=== PATIENT | male | born 1970 | race Caucasian/White ===

== ENCOUNTER → 2022-01-13 09:16 | Outpatient (BNVA) | payer OTHER, SELFPAY | PROVIDERS: Referring Provider Family Medicine; Visit Provider Surgery | DX: Z12.11 Encounter for screening for malignant neoplasm of colon (principal) | CPT/HCPCS: 99203 ==

== ENCOUNTER 2022-12-14 20:00 | Outpatient (CLI) | payer OTHER, SELFPAY | END 2022-12-14 20:01 | disposition home or self-care (01) | LOC: SLEEP 12-15 05:11 | PROVIDERS: Visit Provider Family Medicine | DX: G47.30 Sleep apnea, unspecified (principal) | CPT/HCPCS: 95810 ==

== ENCOUNTER 2023-03-02 14:03 | Outpatient (CLI) | payer OTHER, SELFPAY ==
--- NOTE | 2023-03-02 14:12 | MR_ITS ---
WS: [id number] MRI LUMBAR SPINE NONCONTRAST TECHNIQUE: Sagittal T1, T2 and STIR imaging. Axial T1 and T2 imaging. CLINICAL INFORMATION: SPONDYLOSIS COMPARISON: None. FINDINGS: Mild lumbar curve. Disc bulging worse L5-S1. No acute compression fractures. L1-L2: Mild annular bulging. Mild facet arthropathy. Spinal canal and foramen are patent. L2-L3: No significant disc bulging. Mild facet arthropathy. Spinal canal and foramen are patent. L3-L4: Mild annular bulging. Slight narrowing of the LEFT greater than RIGHT subarticular recess. Mil d facet arthropathy. Mild LEFT and no significant RIGHT foraminal narrowing. L4-L5: Mild annular bulging. Slight impingement subarticular recess bilaterally. Small LEFT foraminal protrusion slightly impinges the exiting LEFT L4 nerve root. Tiny RIGHT foraminal protrusion slightl y contacts the exiting RIGHT L4 nerve root. Moderate facet arthropathy. L5-S1: Small LEFT pericentral protrusion slightly impinges the LEFT S1 nerve root. Mild LEFT foramina l narrowing. Mild facet arthropathy. Visualized pelvic bony structures: Normal. Paravertebral soft tissues: Normal. MR/MR lumbar spine wo con* [id number] IMPRESSION: 1. LEFT pericentral disc protrusion L5-S1 measures 8 mm with impingement on th e LEFT S1 nerve root. Recommend correlation LEFT S1 nerve root symptoms. 2. Mild annular bulging L3-L4 and L4-L5 with narrowing of the subarticular rec ess worse at LEFT L4-L5. 3. Small LEFT foraminal protrusion with small annular fissure slightly impinge s the exiting LEFT L4 nerve root. Tiny RIGHT L4-L5 foraminal protrusion. 4. Mild to moderate facet arthropathy L3-L5.
== END 2023-03-02 14:04 | disposition home or self-care (01) ==
PROVIDERS: PCP Family Medicine; Visit Provider Internal Medicine
DX: M47.25 Other spondylosis with radiculopathy, thoracolumbar region (principal); M51.36 Other intervertebral disc degeneration, lumbar region; M48.07 Spinal stenosis, lumbosacral region; M54.50 Low back pain, unspecified; R20.0 Anesthesia of skin
CPT/HCPCS: 72148

== ENCOUNTER 2023-11-28 14:23 | Emergency (ER) | payer OTHER, SELFPAY ==
[2023-11-28 14:48] VITALS: BP 170/81; PULSE 87; RESP 16; TEMP 36.8; O2SAT 96; BMI 32.5
[2023-11-28 14:58] LABS: Basophils # 0.1 10^3/uL (0.0-0.1); Basophils % 0.5 %; Eosinophils # 0.1 10^3/uL (0.0-0.8); Eosinophils % 1.1 %; Hematocrit 43.9 % (37-53); Lymphocytes # 3.8 10^3/uL (0.8-4.8); Lymphocytes % 34.4 %; Mean Corpuscular HGB Conc 35.1 g/dL (30-55); Mean Corpuscular Hemoglobin 31.3 pg (27-33); Mean Corpuscular Volume 89.2 fl (82-101); Mean Platelet Volume 9.6 fL (7.4-10.4); Monocytes # 0.9 10^3/uL (0.2-0.9); Monocytes % 8.2 %; Neutrophils # 6.15 10^3/uL (1.8-7.7); Neutrophils % 55.4 %; Nucleated Red Blood Cells % 0 %; Platelet Count 187 10^3/cmm (157-399); Red Blood Count 4.92 10^6/uL (3.85-5.65); Red Cell Distribution Width 13.2 % (12.1-15.1); White Blood Count 11.09 10^3/uL (3.29-11.43)
[2023-11-28 15:05] LABS: Alanine Aminotransferase 15 U/L (0-41); Albumin Level 4.2 g/dL (3.5-5.2); Alkaline Phosphatase 56 U/L (40-130); Anion Gap 12.9 (5-19); Aspartate Amino Transferase 24 U/L (0-40); Blood Urea Nitrogen 9 mg/dL (6-20); Calcium 8.7 mg/dL (8.5-10.5); Carbon Dioxide 27 mmol/L (22-29); Chloride 101 mmol/L (98-107); Creatinine Clr Calc Pharmacy 98.3458; Globulin 2.4 g/dL (1.3-4.6); Glomerular Filtration Rate 77.9 mL/min (90-130); Glucose 77 mg/dL (65-115); Lipase 32 U/L (13-60); Osmolality Calculated 281 mOsm/kg (285-295); Potassium 3.9 mmol/L (3.5-5.1); Sodium 137 mmol/L (136-145); Total Bilirubin 0.4 mg/dL (0.15-1.2); Total Protein 6.6 g/dL (6.6-8.7)
--- NOTE | 2023-11-28 16:04 | ED_ITS ---
Documented by User: CONY Torres 11/28/23 16:35 HPI - Male Genitourinary 2 General: Chief complaint: Urogenital-Male Stated complaint: kidney trouble Time Seen by Provider: 11/28/23 15:42 Source: patient Mode of arrival: ambulatory Limitations: no limitations History of Present Illness: Patient is a 53-year-old male who presents to ED today with a complaint of left- sided back pain. Patient states the pain seemed to begin fairly suddenly. He initially thought it was secondary to lifting another individual the day before. He states he does have a history of kidney stones and also states the pain kind of felt similar to that. He feels like at times the back spasms. He occasionally will have some slight radiation of his discomfort into the left side of his abdomen. He does not complain of dysuria, frequency, urgency. He did have one episode of dark urine which he felt like was abnormal as he usually drinks plenty of water. He is not running fevers. He is reporting normal bowel movements. Onset (ago): day(s) Duration: constant Location: left flank Radiation: abdomen Severity: moderate Exacerbating factors: movement Associated symptoms: Reports hematuria (had an episode of dark urine-no obvious blood); Deny dysuria, nausea or vomiting Review of Systems 2 Const: Denies: fever(s), chills, body aches, fatigue or malaise Card: Denies: chest pain Resp: Denies: dyspnea GI: Reports: abdominal pain; Denies: nausea, vomiting or diarrhea : Reports: flank pain and hematuria (had an episode of dark urine-no obvious blood); Denies: difficulty urinating, dysuria, urinary frequency, urinary urgency, urinary hesitancy or urinary dribbling Musc: Reports: back pain; Denies: neck pain, extremity pain, extremity swelling, joint pain or joint swelling Neuro: Denies: numbness in extremities, weakness in extremities, sensory changes or dizziness PFSH ED 2 PFSH: Medical History PTSD (post-traumatic stress disorder) Sleep apnea in adult Bronchitis possible [place] lung injury Social History Smoking and tobacco/nicotine status: never used tobacco/nicotine Physical Exam 2 Const: COMMON NORMALS: no acute distress, patient oriented x3, no limitations, healthy appearing, alert and well nourished Resp: COMMON NORMALS: normal respiratory effort and clear to auscultation bilaterally AUSCULTATION: clear to auscultation bilaterally Cardio: COMMON NORMALS: regular rate and regular rhythm RATE: regular rate RHYTHM: regular rhythm GI: COMMON NORMALS: Normal to inspection, nondistended, normoactive bowel sounds present, Soft to palpation, No hepatosplenomegaly present and no masses INSPECTION: Yes normal to inspection AUSCULTATION: Yes normoactive bowel sounds PALPATION: Yes Soft to palpation, Yes Tenderness to palpation present (GI) (very minor tenderness L abdomen), No Guarding due to palpation present (GI), No Rigid due to palpation and Yes No hepatosplenomegaly present : COMMON NORMALS: Yes no CVA tenderness (tenderness just below L CVA) B LADDER/KIDNEY EXAM: Yes no CVA tenderness (tenderness just below L CVA) Back/Pelvis: COMMON NORMALS: no CVA tenderness (tenderness just below L CVA), thoracic and lumbar spine normal to inspection and no thoracic nor lumbar tenderness THORACIC SPINE/UPPER BACK: No thoracic spinal tenderness, No paraspinal muscle tenderness and No paraspinal muscle spasm LUMBAR SPINE/LOWER BACK: No lumbar spinal tenderness, Yes paraspinal muscle tenderness and No paraspinal muscle spasm BACK IMAGE (MALE): 1. TTP Extremity: GENERAL: Yes normal exam except as noted Neuro: COMMON NORMALS: patient oriented x3, moves all extremities, no focal motor deficits, no sensory deficits noted and gait normal S ENSORIUM/ORIENTATION: Yes alert Skin: COMMON NORMALS: no rashes or lesions noted GENERAL SKIN EXAM: no rashes or lesions noted Course 2 Vital Signs: Vital signs: Vital Signs Temperature 98.3 F 11/28/23 14:48 Pulse Rate 87 11/28/23 14:48 Respiratory Rate 16 11/28/23 14:48 Blood Pressure 170/81 11/28/23 14:48 Pulse Oximetry 96 11/28/23 14:48 Oxygen Delivery Me thod Room Air 11/28/23 14:48 MDM - Male Lab Data 11/28/23 14:44 11/28/23 14:44 Radiology Impressions Abdomen/Pelvis CT 11/28/23 16:31 IMPRESSION: 1. No acute abnormality in the abdomen or pelvis. 2. No hydroureteronephrosis. No calcified urolithiasis. 3. Small fat-containing umbilical hernia. No evidence for strangulation. 4. Scattered diverticula in the colon. No evidence for diverticulitis. 5. Incidental/nonacute findings are listed in the report. Laboratory Results WBC 11.09 10^3/uL (3.29-11.43) 11/28/23 14:44 RBC 4.92 10^6/uL (3.85-5.65) 11/28/23 14:44 Hgb 15.40 g/dL (11.27-16.99) 11/28/23 14:44 Hct 43.9 % (37-53) 11/28/23 14:44 MCV 89.2 fl (82-101) 11/28/23 14:44 MCH 31.3 pg (27-33) 11/28/23 14:44 MCHC 35.1 g/dL (30-55) 11/28/23 14:44 RDW 13.2 % (12.1-15.1) 11/28/23 14:44 Plt Count 187 10^3/cmm (157-399) 11/28/23 14:44 MPV 9.6 fL (7.4-10.4) 11/28/23 14:44 Neut % (Auto) 55.4 % 11/28/23 14:44 Lymph % (Auto) 34.4 % 11/28/23 14:44 [place] % (Auto) 8.2 % 11/28/23 14:44 Eos % (Auto) 1.1 % 11/28/23 14:44 Baso % (Auto) 0.5 % 11/28/23 14:44 Neut # (Auto) 6.15 10^3/uL (1.8-7.7) 11/28/23 14:44 Lymph # (Auto) 3.8 10^3/uL (0.8-4.8) 11/28/23 14:44 [place] # (Auto) 0.9 10^3/uL (0.2-0.9) 11/28/23 14:44 Eos # (Auto) 0.1 10^3/uL (0.0-0.8) 11/28/23 14:44 Baso # (Auto) 0.1 10^3/uL (0.0-0.1) 11/28/23 14:44 Nucleated RBC % (auto) 0 % 11/28/23 14:44 Nucleated RBCs # 0.0 /100WBC 11/28/23 14:44 Sodium 137 mmol/L (136-145) 11/28/23 14:44 Potassium 3.9 mmol/L (3.5-5.1) 11/28/23 14:44 Chloride 101 mmol/L (98-107) 11/28/23 14:44 Carbon Dioxide 27 mmol/L (22-29) 11/28/23 14:44 Anion Gap 12.9 (5-19) 11/28/23 14:44 BUN 9 mg/dL (6-20) 11/28/23 14:44 Creatinine 1.0 mg/dL (0.7-1.2) 11/28/23 14:44 GFR Calculation 77.9 mL/min (90-130) L 11/28/23 14:44 Glucose 77 mg/dL (65-115) 11/28/23 14:44 Calculated Osmolality 281 mOsm/kg (285-295) L 11/28/23 14:44 Calcium 8.7 mg/dL (8.5-10.5) 11/28/23 14:44 Total Bilirubin 0.4 mg/dL (0.15-1.2) 11/28/23 14:44 AST 24 U/L (0-40) 11/28/23 14:44 ALT 15 U/L (0-41) 11/28/23 14:44 Alkaline Phosphatase 56 U/L (40-130) 11/28/23 14:44 Total Protein 6.6 g/dL (6.6-8.7) 11/28/23 14:44 Albumin 4.2 g/dL (3.5-5.2) 11/28/23 14:44 Globulin 2.4 g/dL (1.3-4.6) 11/28/23 14:44 Lipase 32 U/L (13-60) 11/28/23 14:44 Urine Color Straw (Yellow) 11/28/23 16:09 Urine Appearance Clear (CLEAR) 11/28/23 16:09 Urine pH 6 (5-7) 11/28/23 16:09 Ur Specific [place] 1.015 (1.005-1.030) 11/28/23 16:09 Urine Protein Neg (Negative) 11/28/23 16:09 Urine Glucose (UA) Norm (Normal) 11/28/23 16:09 Urine Ketones Negative (Negative) 11/28/23 16:09 Urine Blood Neg (Negative) 11/28/23 16:09 Urine Nitrate Negative (Negative) 11/28/23 16:09 Urine Bilirubin Neg (Negative) 11/28/23 16:09 Urine Urobilinogen Norm mg/dL (Negative) 11/28/23 16:09 Ur Leukocyte Esterase Negative (Negative) 11/28/23 16:09 Discharge Plan Discharge Condition: Stable Prescriptions: No Action albuterol sulfate 90 mcg/actuation HFA aerosol inhaler 2 puff inhalation Q6H PRN (Reason: shortness of breath or wheezing) Qty: 8.5 0RF ketoconazole 2 % shampoo 1 applic topical ONCE Qty: 120 2RF Rx Instructions: Use as body wash and allow to sit 5 minutes before rinsing. Repeat daily for 21 days, then as needed for flares. Referrals: Christy Blackman MD [Primary Care Provider] - Coding Level of Care Code ED Vehicle Service Attendant for [employer] Documented by User: IVAN Neil 11/28/23 17:41 HPI - Male Genitourinary 2 General: Chief complaint: Urogenital-Male Stated complaint: kidney trouble Time Seen by Provider: 11/28/23 15:42 PFSH ED 2 PFSH: Medical History PTSD (post-traumatic stress disorder) Sleep apnea in adult Bronchitis possible [place] lung injury Social History Smoking and tobacco/nicotine status: never used tobacco/nicotine Physical Exam 2 Back/Pelvis: BACK IMAGE (MALE): 1. TTP Course 2 ED course: 1700 -assumed care of patient due to jinny nge in shift Reevaluation(s): Reevaluation #1: Discussed CT findings and labs with patient and family. Advised of incidental findings noted in the CT scan. Advised that this is likely muscular in nature. Discussed medications that he would be able to use to help with his symptoms. Patient declines muscle relaxers at this time as he states that he does have some old cyclobenzaprine at home. Encourage patient to follow-up with his primary care. Time: 17:30 Vital Signs: Vital signs: Vital Signs Temperature 98.3 F 11/28/23 14:48 Pulse Rate 87 11/28/23 14:48 Respiratory Rate 16 11/28/23 14:48 Blood Pressure 170/81 11/28/23 14:48 Pulse Oximetry 96 11/28/23 14:48 Oxygen Delivery Me thod Room Air 11/28/23 14:48 MDM - Male Medical Decision Making 53yo male here with family for left-sided back pain that started after lifting someone, but he thought it may be a kidney stone as he has had them in the past. Patient was received in handoff due to change of shift with a CT pending. Noncontrasted CTAP with no acute abnormality in the abdomen/pelvis, specifically no hydroureteronephrosis and no calcified urolithiasis. Incidental findings of small fat-containing umbilical hernia as well as scattered diverticula with no indication of diverticulitis and mild atherosclerosis noted. Discussed with patient this is likely muscular in nature. Offered medication, but patient does state that he has some at home. Encourage patient to slowly increase his activity level and follow-up with his primary care. Recommend he return to the emergency department if any rapid worsening symptoms, further injury, and as needed. Patient states understanding has no further questions or concerns at this time. Medical Records I reviewed the patient's medical records. Lab Data I reviewed the patient's lab results. 11/28/23 14:44 11/28/23 14:44 Radiology Impressions Abdomen/Pelvis CT 11/28/23 16:31 IMPRESSION: 1. No acute abnormality in the abdomen or pelvis. 2. No hydroureteronephrosis. No calcified urolithiasis. 3. Small fat-containing umbilical hernia. No evidence for strangulation. 4. Scattered diverticula in the colon. No evidence for diverticulitis. 5. Incidental/nonacute findings are listed in the report. Laboratory Results WBC 11.09 10^3/uL (3.29-11.43) 11/28/23 14:44 RBC 4.92 10^6/uL (3.85-5.65) 11/28/23 14:44 Hgb 15.40 g/dL (11.27-16.99) 11/28/23 14:44 Hct 43.9 % (37-53) 11/28/23 14:44 MCV 89.2 fl (82-101) 11/28/23 14:44 MCH 31.3 pg (27-33) 11/28/23 14:44 MCHC 35.1 g/dL (30-55) 11/28/23 14:44 RDW 13.2 % (12.1-15.1) 11/28/23 14:44 Plt Count 187 10^3/cmm (157-399) 11/28/23 14:44 MPV 9.6 fL (7.4-10.4) 11/28/23 14:44 Neut % (Auto) 55.4 % 11/28/23 14:44 Lymph % (Auto) 34.4 % 11/28/23 14:44 [place] % (Auto) 8.2 % 11/28/23 14:44 Eos % (Auto) 1.1 % 11/28/23 14:44 Baso % (Auto) 0.5 % 11/28/23 14:44 Neut # (Auto) 6.15 10^3/uL (1.8-7.7) 11/28/23 14:44 Lymph # (Auto) 3.8 10^3/uL (0.8-4.8) 11/28/23 14:44 [place] # (Auto) 0.9 10^3/uL (0.2-0.9) 11/28/23 14:44 Eos # (Auto) 0.1 10^3/uL (0.0-0.8) 11/28/23 14:44 Baso # (Auto) 0.1 10^3/uL (0.0-0.1) 11/28/23 14:44 Nucleated RBC % (auto) 0 % 11/28/23 14:44 Nucleated RBCs # 0.0 /100WBC 11/28/23 14:44 Sodium 137 mmol/L (136-145) 11/28/23 14:44 Potassium 3.9 mmol/L (3.5-5.1) 11/28/23 14:44 Chloride 101 mmol/L (98-107) 11/28/23 14:44 Carbon Dioxide 27 mmol/L (22-29) 11/28/23 14:44 Anion Gap 12.9 (5-19) 11/28/23 14:44 BUN 9 mg/dL (6-20) 11/28/23 14:44 Creatinine 1.0 mg/dL (0.7-1.2) 11/28/23 14:44 GFR Calculation 77.9 mL/min (90-130) L 11/28/23 14:44 Glucose 77 mg/dL (65-115) 11/28/23 14:44 Calculated Osmolality 281 mOsm/kg (285-295) L 11/28/23 14:44 Calcium 8.7 mg/dL (8.5-10.5) 11/28/23 14:44 Total Bilirubin 0.4 mg/dL (0.15-1.2) 11/28/23 14:44 AST 24 U/L (0-40) 11/28/23 14:44 ALT 15 U/L (0-41) 11/28/23 14:44 Alkaline Phosphatase 56 U/L (40-130) 11/28/23 14:44 Total Protein 6.6 g/dL (6.6-8.7) 11/28/23 14:44 Albumin 4.2 g/dL (3.5-5.2) 11/28/23 14:44 Globulin 2.4 g/dL (1.3-4.6) 11/28/23 14:44 Lipase 32 U/L (13-60) 11/28/23 14:44 Urine Color Straw (Yellow) 11/28/23 16:09 Urine Appearance Clear (CLEAR) 11/28/23 16:09 Urine pH 6 (5-7) 11/28/23 16:09 Ur Specific [place] 1.015 (1.005-1.030) 11/28/23 16:09 Urine Protein Neg (Negative) 11/28/23 16:09 Urine Glucose (UA) Norm (Normal) 11/28/23 16:09 Urine Ketones Negative (Negative) 11/28/23 16:09 Urine Blood Neg (Negative) 11/28/23 16:09 Urine Nitrate Negative (Negative) 11/28/23 16:09 Urine Bilirubin Neg (Negative) 11/28/23 16:09 Urine Urobilinogen Norm mg/dL (Negative) 11/28/23 16:09 Ur Leukocyte Esterase Negative (Negative) 11/28/23 16:09 All radiology interpretation(s) finalized by discharge Discharge Plan Discharge Condition: Stable Prescriptions: No Action albuterol sulfate 90 mcg/actuation HFA aerosol inhaler 2 puff inhalation Q6H PRN (Reason: shortness of breath or wheezing) Qty: 8.5 0RF ketoconazole 2 % shampoo 1 applic topical ONCE Qty: 120 2RF Rx Instructions: Use as body wash and allow to sit 5 minutes before rinsing. Repeat daily for 21 days, then as needed for flares. Referrals: Christy Blackman MD [Primary Care Provider] - Coding Level of Care Code ED Vehicle Service Attendant for Maday Shannon
--- NOTE | 2023-11-28 16:09 | PC.PHAR ---
PT HAS [facility]-FAXED MED REC REQUEST 4:05PM. RESPONSE WILL BE TOMORROW. PT STATES TAKES A STATIN AND A BP MED. 11/28/23
[2023-11-28 16:21] LABS: Add Urine Microscopic? NO; Charge for UA Resulting for Rev
[2023-11-28] MEDS: ketorolac 60 mg/2 mL INJ 30 MG IVP (16:25)
[2023-11-28] MEDS: ondansetron 2 mg/ML SDV 2 mL 4 MG IVP (16:26)
[2023-11-28 16:27] LABS: Bilirubin Urine Neg (Negative); Blood Urine Neg (Negative); Glucose Urine UA Norm (Normal); Ketones Urine Negative (Negative); Leukocyte Esterase Urine Negative (Negative); Nitrate Urine Negative (Negative); Protein Urine Neg (Negative); Specific Gravity, Urine 1.015 (1.005-1.030); Urine Appearance Clear (CLEAR); Urine Color Straw (Yellow); Urobilinogen Urine Norm (Negative); pH Urine 6 (5-7)
--- NOTE | 2023-11-28 16:31 | CTR_ITS ---
PROCEDURE INFORMATION: Exam: CT Abdomen And Pelvis Without Contrast Exam date and time: 11/28/2023 4:58 PM Age: 53 years old Clinical indication: Abdominal pain; Flank; Left; Additional info: L back/abdominal pain TECHNIQUE: Imaging protocol: Computed tomography of the abdomen and pelvis without contrast. Radiation optimization: All CT scans at this facility use at least one of these dose optimization techniques: automated exposure control; mA and/or kV adjustment per patient size (includes targeted exams where dose is matched to clinical indication); or iterative reconstruction. COMPARISON: MR lumbar spine wo con* [id number] 03/02/2023 2:31 PM RADIATION DOSE METRICS: Total DLP (mGy-cm): 807 FINDINGS: Limitations: Evaluation of solid organs and vasculature is limited without intravenous contrast. This is standard protocol for evaluation of possible urolithiasis. Lungs: Visualized lungs are clear. Pleural spaces: No pleural effusion. Heart: Visualized portions of the heart are unremarkable. Liver: The liver is unremarkable. Gallbladder and bile ducts: The gallbladder is unremarkable. No biliary ductal dilatation. Pancreas: The pancreas is unremarkable. No pancreatic ductal dilatation. Spleen: The spleen is unremarkable. Adrenal glands: The right and left adrenal glands are unremarkable. Kidneys and ureters: The right and left kidneys are unremarkable. The right and left ureters are unremarkable. No hydroureteronephrosis. No calcified urolithiasis. Stomach and bowel: Scattered diverticula in the colon. No evidence for diverticulitis. The small bowel is unremarkable. The stomach is unremarkable for the degree of distension. Appendix: The appendix is visualized and is unremarkable. No findings to suggest acute appendicitis. Intraperitoneal space: No free intraperitoneal air. No ascites. No loculated fluid collections to suggest an abscess. Vasculature: Mild atherosclerotic changes in the visualized arteries. No evidence for aortic aneurysm. Lymph nodes: No lymphadenopathy. Urinary bladder: The bladder is unremarkable. Reproductive: Nonspecific parenchymal calcifications in the prostate gland. Bones/joints: Degenerative changes in the spine and hips. Soft tissues: Small fat-containing umbilical hernia. No evidence for strangulation. No acute abnormality in the extra-abdominal soft tissues. CT/CT kidney stone [id number] IMPRESSION: 1. No acute abnormality in the abdomen or pelvis. 2. No hydroureteronephrosis. No calcified urolithiasis. 3. Small fat-containing umbilical hernia. No evidence for strangulation. 4. Scattered diverticula in the colon. No evidence for diverticulitis. 5. Incidental/nonacute findings are listed in the report.
== END 2023-11-28 17:59 | disposition home or self-care (01) ==
PROVIDERS: Emergency Medicine; Emergency Provider Physician Assistant; PCP Family Medicine
DX: M54.50 Low back pain, unspecified (principal); K42.9 Umbilical hernia without obstruction or gangrene
CPT/HCPCS: 36415; 74176; 80053; 81003; 83690; 85025; 96374; 96375; 99285; J1885; J2405